=== PATIENT | female | born 1960 | race Caucasian/White ===

== ENCOUNTER 2018-10-20 01:04 | Inpatient (IN) | payer OTHER ==
[~2018-10-20] VITALS: Ht 172.7 cm; Wt 78.0 kg
[~2018-10-20 01:04] MED LIST: CHLO25 PO; FAMO20 PO; HYDACE10B PO; HYDACE5 PO; HYDACE5325 PO; LEVE500 PO; LORA1 PO; MULVITMIND; Norco 5-325 Ta1 EACH PO; OXYC5 PO; PROM25 PO; RXCLIN PO; RXHYD5325 PO; Ultram50 MG PO; [UNRECOGNIZED DRUG - REMARK]
[2018-10-20 01:15] LABS: Calcium, Ionized (POC) 0.91 mmol/L (1.10-1.46); Chloride (POC) 84 mmol/L (98-108); Glucose (ISTAT POC) 147 mg/dL (70-99); Hemoglobin (POC) 12.2 g/dL (12.0-16.0); Potassium (POC) 2.4 mmol/L (3.5-5.5); Sodium (POC) 127 mmol/L (135-148); Total CO2 (POC) 27 mmol/L (21-32)
[2018-10-20 01:26] LABS: PO2 Arterial 72.6 mmHg (80-100); pH Blood Arterial 7.51 (7.35-7.45)
[2018-10-20 01:46] LABS: BASOPHILS ABSOLUTE AUTO 0.03 K/mm3 (0.00-0.23); BASOPHILS PERCENT AUTO 1 % (0-2); EOSINOPHILS PERCENT AUTO 0 % (0-6); Hematocrit 35.4 % (33.0-51.0); Hemoglobin 11.7 g/dL (11.5-16.0); IMMATURE GRAN ABSOLUTE AUTO 0.03 K/mm3 (0.00-0.10); IMMATURE GRAN PERCENT AUTO 1 % (0-1); LYMPHOCYTES ABSOLUTE AUTO 0.66 K/mm3 (0.84-5.20); LYMPHOCYTES PERCENT AUTO 10 % (21-46); MONOCYTES ABSOLUTE AUTO 0.27 K/mm3 (0.16-1.47); MONOCYTES PERCENT AUTO 4 % (4-13); Mean Corpuscular HGB 34.6 pg (26.0-34.0); Mean Corpuscular HGB Conc 33.1 g/dL (31.5-36.5); Mean Corpuscular Volume 105 fL (80-100); Mean Platelet Volume 10.1 fL (9.1-12.4); NEUTROPHILS ABSOLUTE AUTO 5.63 K/mm3 (1.96-9.15); NEUTROPHILS PERCENT AUTO 85 % (41-73); Platelet Count 130 K/mm3 (150-400); RDW Standard Deviation 58.3 fL (35.1-46.3); Red Blood Cell Count 3.38 M/mm3 (3.80-5.20); White Blood Cell Count 6.62 K/mm3 (4.00-11.30)
[2018-10-20 02:02] LABS: Acetaminophen, Random 22.5 ug/mL (10.0-30.0); Alanine Aminotransfer (ALT/SGP 44 U/L (12-78); Albumin, Blood 2.4 g/dL (3.4-5.0); Albumin/Globulin Ratio 0.5 (0.8-1.8); Alk Phos 144 U/L (50-136); Anion Gap 19 mmol/L (6-16); Aspartate Aminotrans (AST/SGOT 94 U/L (12-37); Bilirubin, Total 5.5 mg/dL (0.1-1.0); Blood Urea Nitrogen 10 mg/dL (8-24); Bun/Creatinine Ratio 9.8 (12.0-20.0); CO2, Blood 27 mmol/L (21-32); Calcium, Blood 8.5 mg/dL (8.5-10.1); Chloride, Blood 84 mmol/L (98-108); Creatinine, Blood 1.02 mg/dL (0.40-1.00); Ethanol (Alcohol), Blood, Med <3 mg/dL; Globulin, Blood 4.8 g/dL (2.2-4.0); Glomerular Filtration Rate 60 (60-); Glucose, Blood 137 mg/dL (70-99); Potassium, Blood 2.6 mmol/L (3.5-5.5); Sodium, Blood 130 mmol/L (136-145); Total Protein, Blood 7.2 g/dL (6.4-8.2)
[2018-10-20 02:05] LABS: Thyroid Stimulating Hormone 0.665 uIU/mL (0.360-4.800)
[2018-10-20 02:09] LABS: Salicylate < 2.0 mg/dL (2.8-20.0)
[2018-10-20 02:33] LABS: Source, Urine Catheter
[2018-10-20 02:38] LABS: Appearance, Urine Cloudy (Clear); Blood, Urine 2+ (Neg); Color, Urine Amber (P-Yellow); Glucose Qualitative, Urine Neg (Neg); Ketones, Urine 1+ (Neg); Leukocyte Esterase, Urine 1+ (Neg); Nitrite, Urine Neg (Neg); Protein, Urine 2+ (Neg); Specific Gravity, Urine 1.025 (1.003-1.022); Urobilinogen, Urine 2+ (Normal)
[2018-10-20 02:40] LABS: Bilirubin, Urine 1+ (Neg)
[2018-10-20 02:43] LABS: Bacteria Many /hpf; Red Blood Cells, Urine 0-2 /hpf (0-2); Squamous Epithelial Cells Few /hpf (Few)
[2018-10-20 02:52] LABS: U Amphetamine Screen Not Detected; U Barbituate Screen Not Detected; U Benzodiazapine Screen Not Detected; U Buprenorphine Screen DETECTED; U Cannabinoids Screen Not Detected; U Cocaine Screen Not Detected; U Methadone Screen Not Detected; U Methamphetamine Screen Not Detected; U Opiates Screen DETECTED; U Oxycodone Screen Not Detected; U Phencyclidine Screen Not Detected; U Propoxyphene Screen Not Detected
[2018-10-20 06:30] LABS: BASOPHILS ABSOLUTE AUTO 0.03 K/mm3 (0.00-0.23); BASOPHILS PERCENT AUTO 0 % (0-2); EOSINOPHILS ABSOLUTE AUTO 0.02 K/mm3 (0.00-0.68); EOSINOPHILS PERCENT AUTO 0 % (0-6); Hematocrit 36.6 % (33.0-51.0); Hemoglobin 12.2 g/dL (11.5-16.0); IMMATURE GRAN ABSOLUTE AUTO 0.05 K/mm3 (0.00-0.10); IMMATURE GRAN PERCENT AUTO 1 % (0-1); LYMPHOCYTES ABSOLUTE AUTO 1.07 K/mm3 (0.84-5.20); LYMPHOCYTES PERCENT AUTO 13 % (21-46); MONOCYTES ABSOLUTE AUTO 0.35 K/mm3 (0.16-1.47); MONOCYTES PERCENT AUTO 4 % (4-13); Mean Corpuscular HGB 34.2 pg (26.0-34.0); Mean Corpuscular HGB Conc 33.3 g/dL (31.5-36.5); Mean Corpuscular Volume 103 fL (80-100); NEUTROPHILS ABSOLUTE AUTO 6.56 K/mm3 (1.96-9.15); NEUTROPHILS PERCENT AUTO 81 % (41-73); RDW Coefficient Variation 15.2 % (11.7-14.2); RDW Standard Deviation 57.3 fL (35.1-46.3); Red Blood Cell Count 3.57 M/mm3 (3.80-5.20); White Blood Cell Count 8.08 K/mm3 (4.00-11.30)
--- NOTE | 2018-10-20 06:32 | NUR ---
ADMISSION NOTE & SHIFT SUMMARY: PT NEW TO FLOOR THIS MORNING, ADMITTING FROM ED. PT TRANSFERED c THREE PERS ASSIST AND TRANSFER SHEET. PT A&O TO SELF & ONLY. REPORTS PT R SIDE WEAKNESS AND DROOP HAVE RESOLVED. PT HAS HX OF SIGNIFICANT BRAIN INJURY/CRANIOTOMY IN 2008, LEAVING SIGNIFICANT NEUROLOGIC/COGNITIVE DEFICITS. PT HAS SPEECH IMPENDEMENT, [place], DIFFICULTY COMMUNICATING/UNDERSTANDING THINGS, ETC. PER PT , HE STATES THAT SHE IS SIMILAR TO "RAISING ANOTHER CHILD". PT RECENTLY STOPPED DRINKING ALCOHOL 2 WEEKS AGO. PT REPORTS SHE WAS DRINKING 5 ENERGY DRINK ALCOHOL DRINK MIXTURES, AND A PINT OF VODKA PER DAY. PT IS OBSERVED TO BE DOING SHORT EPISODES OF TWITCHING, CONVULSING-LIKE MOTIONS THAT LAST A FEW SECONDS. PT HAS A HX OF SEIZURES. THIS RN IMPLEMENTED SEIZURE PRECAUTIONS UPON ADMISSION.
[2018-10-20 06:40] LABS: Mean Platelet Volume 10.9 fL (9.1-12.4); Platelet Count 99 K/mm3 (150-400)
[2018-10-20 06:47] LABS: Anion Gap 12 mmol/L (6-16); Blood Urea Nitrogen 9 mg/dL (8-24); Bun/Creatinine Ratio 10.4 (12.0-20.0); CO2, Blood 30 mmol/L (21-32); Calcium, Blood 8.2 mg/dL (8.5-10.1); Chloride, Blood 87 mmol/L (98-108); Creatinine, Blood 0.87 mg/dL (0.40-1.00); Glomerular Filtration Rate >60 (60-); Glucose, Blood 115 mg/dL (70-99); Potassium, Blood 3.1 mmol/L (3.5-5.5); Sodium, Blood 129 mmol/L (136-145)
--- NOTE | 2018-10-20 12:46 | NUR ---
PT NOTED TO HAVE INVOLUNTARY MOVEMENTS TO BODY WELL TWITCHING TO RIGHT SIDE OF FACE. ISTRATE AT BEDSIDE AND AWARE. IV ATIVAN GIVEN. SPEECH IS INCOMPREHENSIBLE AND INAPROPRIATE, DOES NOT ANSWER APROPRIATELY. SPOUSE REPORTS THAT SHE HAS HAD A SPEECH IMPETAMENT SINCE HER CRANIOTOMY. PT NOW RESTING IN BED, NOW INVOLUNTARY MOVEMENT NOTED AT THIS TIME AFTER ATIVAN.
--- NOTE | 2018-10-20 16:02 | NUR ---
DR. BEARD NOTIFIED ON PT'S ELEVATED HEART RATE, TELEMTRY ORDERED. RN ASKED DR. BEARD IF HE WANTS TO CONTINUE FLUIDS THROUGHOUT THE NIGHT SINCE THE PT WILL BE NPO, HE ORDERED TO CONTINUE THE FLUIDS SHES ON AT 100 MLS/HR.
--- NOTE | 2018-10-20 16:57 | NUR ---
THE PATIENT'S WAS HERE THIS MORNING DURING SHIFT CHANGE. HE LEFT SOON AFTER TO GO HOME. THE PATIENT WAS ABLE TO VOCALIZE WHERE SHE WAS DURING MY INITIAL SHIFT ASSESSMENT ON HER. HER SPEECH WAS MUCH MORE CLEAR. THIS MORNING SHE PRESENTED WITH PERIODIC JERKING MOVEMENTS OF HER BODY AND FACE. DR. BEARD PRESCRIBED ATIVAN TO TREAT THE JERKING MOVEMENTS AND SPEECH THERAPY TO DETERMINE IF SHE COULD EAT TODAY. THE ATIVAN WAS GIVEN PRESCRIBED AND SOON AFTER, ST CAME TO EVALUATE THE PT BUT WERE UNABLE TO DO SO BECAUSE SHE WAS DROWSY FROM ATIVAN. THE PT IS NPO. SHE HAS REQUESTED LUNCH AND DIET COKE TODAY. PT HAS TELEMETRY ON TO MONITOR HER TACHYCARDIA. SHE IS CURRENTLY RESTING IN BED. NS HAS BEEN PRESCRIBED FOR THIS PT AT 100 MLS/HR.
[2018-10-21 05:34] LABS: BASOPHILS ABSOLUTE AUTO 0.02 K/mm3 (0.00-0.23); BASOPHILS PERCENT AUTO 0 % (0-2); EOSINOPHILS ABSOLUTE AUTO 0.01 K/mm3 (0.00-0.68); EOSINOPHILS PERCENT AUTO 0 % (0-6); Hematocrit 29.8 % (33.0-51.0); Hemoglobin 9.7 g/dL (11.5-16.0); IMMATURE GRAN ABSOLUTE AUTO 0.08 K/mm3 (0.00-0.10); IMMATURE GRAN PERCENT AUTO 1 % (0-1); LYMPHOCYTES PERCENT AUTO 16 % (21-46); MONOCYTES ABSOLUTE AUTO 0.47 K/mm3 (0.16-1.47); MONOCYTES PERCENT AUTO 6 % (4-13); Mean Corpuscular HGB 34.2 pg (26.0-34.0); Mean Corpuscular HGB Conc 32.6 g/dL (31.5-36.5); Mean Corpuscular Volume 105 fL (80-100); Mean Platelet Volume 10.4 fL (9.1-12.4); NEUTROPHILS ABSOLUTE AUTO 5.89 K/mm3 (1.96-9.15); NEUTROPHILS PERCENT AUTO 77 % (41-73); Platelet Count 105 K/mm3 (150-400); RDW Coefficient Variation 15.8 % (11.7-14.2); Red Blood Cell Count 2.84 M/mm3 (3.80-5.20); White Blood Cell Count 7.67 K/mm3 (4.00-11.30)
[2018-10-21 05:58] LABS: Anion Gap 10 mmol/L (6-16); Blood Urea Nitrogen 9 mg/dL (8-24); Bun/Creatinine Ratio 9.5 (12.0-20.0); CO2, Blood 26 mmol/L (21-32); Calcium, Blood 7.7 mg/dL (8.5-10.1); Chloride, Blood 102 mmol/L (98-108); Creatinine, Blood 0.95 mg/dL (0.40-1.00); Glomerular Filtration Rate >60 (60-); Glucose, Blood 72 mg/dL (70-99); Potassium, Blood 3.8 mmol/L (3.5-5.5); Sodium, Blood 138 mmol/L (136-145)
--- NOTE | 2018-10-21 07:41 | NUR ---
Rn summary: Patient responds to name, she has garbled speach and is difficult to understand. Pt has difficulty following directions. Pt neuro checks have been stable all shift. 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 Pt does have mouth twitching, mouth goes to the right with twitches. Occ rt arm with twitch. Pt did void x1 for 100cc dk chyna urine which was strong smelling. Bed alarm on for safety. Pt had a temp of 100.8 so she was given crushed tylenol in applesause and she took without difficulty. Pt temp an hour later was 101.0. Tele shows Sinus tach in the 114 range. Pt does not use call light and she has rested fairly well.
--- NOTE | 2018-10-21 17:37 | NUR ---
THIS PT PASSED THE SWALLOW EVALUATION THIS MORNING. SHE'S ON A MECHANICAL SOFT DIET, NO STRAWS, SIT UP TO EAT, WITH SUPERVISION. SHE CAN SWALLOW HER PILLS WHOLE WITH WATER. THE PROCEDURE NURSE INSERTED A NEW 18 GAUGE IV IN HER RIGHT ARM TODAY, REPLACINGG THE FEILD STARTS. SHE IS ON CONTINUOUS FLUIDS AT 75 MLS/HR. SHE DOESNT CALL APPROPRIATELY BUT CAN SOMETIMES TELL YOU HER NEEDS. SHE IS ON TELEMETRY, SINUS TACH 112 PER PLASTERER JOURNEYMAN. WILL CONTINUE TO MONITOR.
--- NOTE | 2018-10-22 06:44 | NUR ---
Rn summary: Patient is alert to self. She is impulsive and non directable. Report is that she is at her baseline. Pt has rested fairly well. She is able to take meds whole with water. Pt up to commode at the beginning of shift, voided, had very small BM. Pt up on and off during the night but unable to void. She did this last night too then was incotinent in the am. Checked at 0630, pt is dry. Pt did have temp of 101.2 at 0110. Tylenol given, and temp was 99.8 at 0400. Pt continues to receive IV fluids and IV ABX. Pt does not understand how to use call light, bed alsarm is on. Close monitoring.
[2018-10-22 08:35] LABS: BASOPHILS ABSOLUTE AUTO 0.03 K/mm3 (0.00-0.23); BASOPHILS PERCENT AUTO 1 % (0-2); EOSINOPHILS ABSOLUTE AUTO 0.03 K/mm3 (0.00-0.68); EOSINOPHILS PERCENT AUTO 1 % (0-6); Hematocrit 31.2 % (33.0-51.0); IMMATURE GRAN PERCENT AUTO 2 % (0-1); LYMPHOCYTES ABSOLUTE AUTO 1.02 K/mm3 (0.84-5.20); LYMPHOCYTES PERCENT AUTO 18 % (21-46); MONOCYTES ABSOLUTE AUTO 0.34 K/mm3 (0.16-1.47); MONOCYTES PERCENT AUTO 6 % (4-13); Mean Corpuscular HGB 34.2 pg (26.0-34.0); Mean Corpuscular HGB Conc 32.1 g/dL (31.5-36.5); Mean Corpuscular Volume 107 fL (80-100); Mean Platelet Volume 9.9 fL (9.1-12.4); NEUTROPHILS ABSOLUTE AUTO 4.03 K/mm3 (1.96-9.15); NEUTROPHILS PERCENT AUTO 73 % (41-73); Platelet Count 88 K/mm3 (150-400); RDW Coefficient Variation 15.9 % (11.7-14.2); RDW Standard Deviation 62.4 fL (35.1-46.3); Red Blood Cell Count 2.92 M/mm3 (3.80-5.20); White Blood Cell Count 5.55 K/mm3 (4.00-11.30)
[2018-10-22 08:37] LABS: Anion Gap 9 mmol/L (6-16); Blood Urea Nitrogen 12 mg/dL (8-24); Bun/Creatinine Ratio 12.1 (12.0-20.0); CO2, Blood 26 mmol/L (21-32); Calcium, Blood 7.7 mg/dL (8.5-10.1); Chloride, Blood 105 mmol/L (98-108); Creatinine, Blood 0.99 mg/dL (0.40-1.00); Glomerular Filtration Rate >60 (60-); Glucose, Blood 100 mg/dL (70-99); Sodium, Blood 140 mmol/L (136-145)
[2018-10-22 08:48] LABS: Vancomycin, Trough 21.8 ug/mL (5.0-10.0)
--- NOTE | 2018-10-22 15:47 | NUR ---
summary PT IS SOMEWHAT CHILDLIKE, SPEECH GARBLED/APHASIA, @ X'S IMPULSIVE GETS UP W/O ASSIST. USING ALARMS FOR SAFTEY/FALL RISK. GAIT SOMEWHAT UNSTEADY HOWEVER SHE AMBULATED IN [place]LLOWAY WITH PHYTHER, 1 ASSIST W FWW & GB. DR MERA IN TO SEE HER TODAY R/T POSS CHOLECYSTITIS ORDER HIDA SCAN, NUCMED STATE WILL BE IN AM APPROX 0930, STATE PT TO BE NPO AFTER MIDNITE. MULT IV ANTIBX CONTINUE. DR BEARD IN TO SEE PT, STATE TO CONTINUE IV NS @ 75 ML/HR FOR NOW.
--- NOTE | 2018-10-23 04:42 | NUR ---
SHIFT SUMMARY PT HAD UNREMARKABLE SHIFT. PT CONTINUES TO BE IMPULSIVE AND DIFFICULT TO UNDERSTAND. PT HAD NO COMPLAINTS DURING SHIFT. PT WAS NPO AT MIDNIGHT. PT CURRENTLY SLEEPING AND BREATHING EASY. BED ALARM IS ON AND CALL LIGHT IN REACH.
--- NOTE | 2018-10-23 08:18 | NUR ---
MORNING ASSESSMENT WITH PATIENT HAS BEEN LIMITED. PATIENT IS UNABLE TO ANSWER ANYTHING OTHER THAN YES OR NO QUESTIONS. RN ASKED IF SHE HAD ANY NUMBNESS OR TINGLING IN HER HANDS OR FEET PATIENT STATES "I DON'T UNDERSTAND". PATIENT'S SPEECH IS DIFFICULT TO UNDERSTAND AND PATIENT MOSTLY REVERTS TO POINTING AT OBJECTS VS SPEAKING. WILL CONTINUE TO MONITOR AND REATTEMPT FURTHER ASSESSMENT AT A LATER TIME. HIDA SCAN AT 930, PATIENT HAS BEEN NPO SINCE MIDNIGHT AND HAS ONLY HAD IV ANTIBIOTICS THIS AM.
[2018-10-23 12:56] LABS: BASOPHILS ABSOLUTE AUTO 0.05 K/mm3 (0.00-0.23); BASOPHILS PERCENT AUTO 1 % (0-2); EOSINOPHILS ABSOLUTE AUTO 0.03 K/mm3 (0.00-0.68); EOSINOPHILS PERCENT AUTO 1 % (0-6); Hematocrit 32.4 % (33.0-51.0); Hemoglobin 10.5 g/dL (11.5-16.0); IMMATURE GRAN ABSOLUTE AUTO 0.12 K/mm3 (0.00-0.10); IMMATURE GRAN PERCENT AUTO 2 % (0-1); LYMPHOCYTES PERCENT AUTO 12 % (21-46); MONOCYTES PERCENT AUTO 5 % (4-13); Mean Corpuscular HGB 34.8 pg (26.0-34.0); Mean Corpuscular HGB Conc 32.4 g/dL (31.5-36.5); Mean Corpuscular Volume 107 fL (80-100); Mean Platelet Volume 9.9 fL (9.1-12.4); NEUTROPHILS ABSOLUTE AUTO 4.48 K/mm3 (1.96-9.15); NEUTROPHILS PERCENT AUTO 79 % (41-73); Platelet Count 85 K/mm3 (150-400); RDW Standard Deviation 62.2 fL (35.1-46.3); Red Blood Cell Count 3.02 M/mm3 (3.80-5.20); White Blood Cell Count 5.68 K/mm3 (4.00-11.30)
[2018-10-23 13:00] LABS: Anion Gap 8 mmol/L (6-16); Blood Urea Nitrogen 8 mg/dL (8-24); Bun/Creatinine Ratio 9.1 (12.0-20.0); CO2, Blood 26 mmol/L (21-32); Calcium, Blood 7.8 mg/dL (8.5-10.1); Chloride, Blood 105 mmol/L (98-108); Creatinine, Blood 0.88 mg/dL (0.40-1.00); Glomerular Filtration Rate >60 (60-); Glucose, Blood 110 mg/dL (70-99); Potassium, Blood 3.2 mmol/L (3.5-5.5); Sodium, Blood 139 mmol/L (136-145)
[2018-10-23 13:08] LABS: Vancomycin, Trough 18.1 ug/mL (5.0-10.0)
--- NOTE | 2018-10-23 15:24 | NUR ---
Initial Visit: Palliative Care Consult for goals of care. Pt is awake and difficult to assess orientation. She appears to be experiencing expresive aphasia. She is able to answer with yes or no questions. She denies pain, dyspnea, and axiety at this time. At times she is able to respond in lengthier answers but struggles with pronouncing and annunciating. Spoke with Pt's nurse and she reports the Pt experiences expressive aphasia and recommends any discussion about goals of care be done with . Called and spoke with Prakash to discuss goals of care or concerns. He reports not able to speak at this time. Will attempt conversation with at a later time or date.
--- NOTE | 2018-10-23 15:58 | NUR ---
PATIENT COMPLETED HIDA SCAN TODAY. SHE IS STILL VERBALLY LIMITED. SHE WAS UNABLE TO ANSWER THE DRS QUESTIONS WHEN HE ROUNDED THIS AFTERNOON. CURRENTLY AT BEDSIDE WITH LIANNE UJAREZ FROM PALLIATIVE CARE DISCUSSING ADVANCED DIRECTIVES AND POLST. SEEMS TO BE RECEPTIVE TO HAVING CARE GIVERS IN THE HOME AFTER THIS HOSPITALIZATION. PHYSICAL THERAPY STATES REHAB POTENTIAL IS LIMITED.
--- NOTE | 2018-10-23 16:09 | NUR ---
Pt visit this afternoon. Pt has come to visit and requested to speak with palliative care. Pt's [facility] [phone] asked when Pt will be able to come home. Referred this question to Pt's nurse Jena or hospitalist. Engaged in discussion of goals of care for Pt. [facility] reports that in the past Pt has refused in home care givers. When Pt is asked during this visit, Pt is agreeable. Instructed Pt and [facility] a social service consult will be placed and they will be able to assist in pointing in the right direction. Discussed and educated [facility] and Pt on advance directive and POLST. [facility] reports he will consider options and choices and complete form at home with Pt. Left business card with [facility] and instructed to call with any questions or concerns. Placed social service referral for assistance with in home caregivers.
--- NOTE | 2018-10-24 04:23 | NUR ---
SHIFT SUMMARY PT HAS SLEPT THROUGHOUT SHIFT. PT HAD NO ACUTE ISSUES NOTED. PT IS CURRENTLY SLEEPING AND BREATHING EASY. CALL LIGHT IN REACH AND BED ALARM IS ON.
[2018-10-24] MEDS ORDERED: ACET325 PO (16:19)
--- NOTE | 2018-10-24 17:00 | NUR ---
PATIENT DISCHARGED TO HOME WITH . FRIEND TRANSPORTING PATIENT STATES SHE UNDERSTANDS DISCHARGE INSTRUCTIONS. HOME HEALTH WILL BE CONTACTING PATIENT THIS WEEK.IV ACCESS REMOVED. ESCORTED OUT VIA WHEELCHAIR WITH HERMAN
== END 2018-10-24 16:26 | disposition home health service (06) | DRG 872 ==
LOC: ER 01:04 → MEDS 04:14 → ER 04:14 → MEDS 04:15 → ER 04:15 → MEDS 04:15
PROVIDERS: Emergency Medicine; Family Medicine; ADMIT Hospitalist
DX: A41.9 Sepsis, unspecified organism (principal); F11.20 Opioid dependence, uncomplicated; E87.1 Hypo-osmolality and hyponatremia; K76.6 Portal hypertension; R47.9 Unspecified speech disturbances; Z87.891 Personal history of nicotine dependence; R29.898 Other symptoms and signs involving the musculoskeletal system; G40.909 Epilepsy, unspecified, not intractable, without status epilepticus; F10.10 Alcohol abuse, uncomplicated; E87.6 Hypokalemia; Z86.73 Personal history of transient ischemic attack (TIA), and cerebral infarction without residual deficits
CPT/HCPCS: 36415; 36600; 51702; 70450; 70496; 70551; 74176; 76705; 78227; 80047; 80048; 80053; 80177; 80202; 81001; 81025; 82140; 82803; 83605; 83735; 84443; 85014; 85025; 87040; 87086; 92526; 92610; 93005; 93010; 96361; 96365; 96366; 96367; 96368; 96372; 96375; 97110; 97116; 97162; 97166; 97530; 97535; 99285-25; A9537; G0378; G0480; J0696; J1650; J2060; J3370; J3475; J3480; J7030; J7050; Q9967